=== PATIENT | male | born 1940 | race Caucasian/White ===

== ENCOUNTER 2023-01-16 09:53 | Outpatient (CLI) | payer MEDICARE, OTHER | END 2023-01-16 23:59 | disposition critical access hospital (66) | LOC: EMS 09:53 | DX: I46.9 Cardiac arrest, cause unspecified (principal) | CPT/HCPCS: A0425; A0427 ==

== ENCOUNTER 2023-01-16 10:15 | Inpatient (IN) | payer MEDICARE, OTHER ==
[2023-01-16] MEDS: NOREPINEPHRINE/D5W 8 MG/250 ML BAG IV SCH ×2 (10:24→19:02)
[2023-01-16] MEDS ORDERED: NOREPINEPHRINE/D5W 8 MG/250 ML BAG IV ONE (10:28)
[2023-01-16 10:37] LABS: ABG BASE EXCESS -20.2 mmol/L (-2.0-3.0); ABG HCO3 13.8 mmol/L (22.0-26.0); ABG PO2 65 mmHg (80-100); ALLEN TEST POSITIVE
[2023-01-16 10:38] LABS: ABG MODE OF VENTILATION SIMV; ABG RESPIRATORY RATE 20 b/min
[2023-01-16 10:45] LABS: ABG OXYGEN SATURATION 76 % (94-98); ABG PCO2 73 mmHg (34-45); ABG PH 6.89 (7.35-7.45)
[2023-01-16 10:49] LABS: BASOPHILS % (AUTO) 0.4 %; EOSINOPHILS % (AUTO) 1.3 %; HCT - HEMATOCRIT 48.3 % (42.0-52.0); HGB - HEMOGLOBIN 14.9 g/dL (14.0-18.0); LYMPHOCYTES % (AUTO) 31.5 %; MEAN CORPUSCULAR HEMOGLOBIN 30.7 pg (27.0-31.0); MEAN CORPUSCULAR HGB CONC 30.8 g/dL (32.0-36.0); MEAN CORPUSCULAR VOLUME 99.4 fL (80.0-94.0); MEAN PLATELET VOLUME 12.5 fL (7.4-11.4); MONOCYTES % (AUTO) 5.1 %; PLT - PLATELET COUNT 138 10^3/uL (130-450); RED BLOOD COUNT 4.86 10^6/uL (4.70-6.10); RED CELL DISTRIBUTION WIDTH 12.3 % (12.0-15.0); WHITE BLOOD COUNT 14.2 x10^3/uL (4.8-10.8)
[2023-01-16 10:55] LABS: ALBUMIN 3.5 g/dL (3.2-5.5); ALBUMIN/GLOBULIN RATIO 1.5 (1.0-2.2); BILIRUBIN,TOTAL 0.6 mg/dL (0.2-1.0); CREATININE 1.6 mg/dL (0.6-1.3); INR 1.3 (0.8-1.2); MAGNESIUM 2.2 mg/dL (1.7-2.3); PHOSPHORUS 8.6 mg/dL (3.7-7.2); TOTAL PROTEIN 5.9 g/dL (6.4-8.9)
[2023-01-16 10:56] LABS: ABNORMAL LYMPHS % (MANUAL) 0 %
[2023-01-16] MEDS ORDERED: iohexoL-300 100 ML VIAL ONE (10:56)
[2023-01-16] MEDS ORDERED: PROPOFOL 1000 MG/100 ML 1,000 MG/100 ML BOTTLE IV ONE (10:57)
--- NOTE | 2023-01-16 10:59 | XRAY Report ---
PROCEDURE: Chest 1 View X-Ray INDICATIONS: POST ARREST TECHNIQUE: One view of the chest was acquired. COMPARISON: None. FINDINGS: Surgical changes and devices: Endotracheal tube is present approximately 1 cm. To the tito. [place] stric tube is present distal tip projecting below the hemidiaphragms. Lungs and pleura: Bilateral patchy opacities are present. Mediastinum: Mediastinal contours appear normal. Heart size is normal. Bones and chest wall: No suspicious bony lesions. Overlying soft tissues appear unremarkable. IMPRESSION: Support lines as above. Bilateral pulmonary opacities which may represent pneumonia and/or edema. Reviewed by: Maame Betancourt MD on 01/16/2023 10:58 AM PDT Approved by: Maame Betancourt MD on 01/16/2023 10:58 AM PDT Station ID: [id number]
[2023-01-16 11:25] LABS: BAND NEUTROPHILS % (MANUAL) 18 %; EOSINOPHILS # (MANUAL) 0.3 10^3/uL (0-0.7); LYMPHOCYTES # (MANUAL) 6.4 10^3/uL (1.5-3.5); LYMPHOCYTES % (MANUAL) 14 %; METAMYELOCYTES % (MANUAL) 1 %; MONOCYTES # (MANUAL) 0.9 10^3/uL (0.0-1.0); MYELOCYTES % (MANUAL) 1 %; NEUTROPHILS # (MANUAL) 6.4 10^3/uL (1.5-6.6); REACTIVE LYMPHS % (MANUAL) 31 %
[2023-01-16 11:26] LABS: DIFFERENTIAL COMMENT MANUAL DIFFERENTIAL
--- NOTE | 2023-01-16 11:35 | ED Physician Documentation ---
PD HPI CPR - Stated complaint Stated Complaint: ROSC - Chief complaint Chief Complaint: Critical Care - History obtained from History obtained from: EMS - Additional information Additional information: 82-year-old male with unknown past medical history presents by EMS from home for cardiac arrest. Patient arrives intubated with CPR in progress. EMS states that patient had just finished eating breakfast and had gone to the restroom. Family told EMS that he didn't come back when exected and went to look for him. They found him on the ground and called 911. Family did CPR while waiting for EMS. Patient's presenting rhythm asystole. EMS briefly got ROSC however patient then lost pulses. Review of Systems Unable to obtain: Unresponsive, Intubated PD PAST MEDICAL HISTORY - Past Medical History Past Medical History: Yes - Allergies Allergies/Adverse Reactions: Allergies Allergy/AdvReac Type Severity Reaction Status Date / Time No Known Drug Allergies Allergy Verified 01/16/23 10:40 PD ED PE NORMAL - Vitals Vital signs reviewed: Yes - General General: Other (intubated, CPR in progress) - HEENT HEENT: Other (ETT in place) - Neck Neck: Other (In C-collar) - Cardiac Cardiac: Other (CPR in progress) - Abdomen Abdomen: Soft, Non distended - Derm Derm: Normal color, Warm and dry, No rash - Extremities Extremities: No deformity, No edema - Neuro Neuro: Other (GCS 3) Results - Vitals Vitals: Vital Signs - 24 hr 01/16/23 01/16/23 01/16/23 10:14 10:25 10:38 Temperature 34.5 C L Heart Rate 95 107 H 107 H Respiratory 20 22 Rate Blood Pressure 109/71 140/89 H O2 Saturation 100 86 L 01/16/23 01/16/23 01/16/23 10:54 11:08 11:15 Temperature 34.2 C L 34.5 C L 34.6 C L Heart Rate 108 H 110 H 112 H Respiratory 24 14 22 Rate Blood Pressure 121/91 H 136/119 H 136/97 H O2 Saturation 93 97 98 01/16/23 01/16/23 01/16/23 11:30 11:45 12:00 Temperature Heart Rate 113 H 113 H 111 H Respiratory 22 22 22 Rate Blood Pressure 175/152 H 156/108 H 96/63 O2 Saturation 98 96 94 01/16/23 01/16/23 01/16/23 12:15 12:30 12:45 Temperature Heart Rate 108 H 107 H 107 H Respiratory 22 20 20 Rate Blood Pressure 94/63 98/63 86/61 L O2 Saturation 95 94 94 01/16/23 01/16/23 01/16/23 13:00 13:15 13:30 Temperature 34.5 C L 34.5 C L 34.5 C L Heart Rate 107 H 107 H 107 H Respiratory 20 20 20 Rate Blood Pressure 101/77 95/67 91/68 O2 Saturation 94 94 93 01/16/23 01/16/23 01/16/23 13:45 14:00 14:15 Temperature 34.5 C L 34.5 C L 34.5 C L Heart Rate 107 H 105 H 107 H Respiratory 20 20 20 Rate Blood Pressure 98/68 78/58 L 84/72 L O2 Saturation 94 86 L 87 L 01/16/23 01/16/23 01/16/23 14:30 14:45 15:00 Temperature 34.5 C L 34.5 C L 34.5 C L Heart Rate 104 H 102 H 102 H Respiratory 20 20 20 Rate Blood Pressure 89/70 L 93/66 96/68 O2 Saturation 91 L 90 L 90 L 01/16/23 01/16/23 15:15 15:33 Temperature 34.5 C L Heart Rate 104 H 105 H Respiratory 20 18 Rate Blood Pressure 92/77 90/70 O2 Saturation 92 96 Oxygen O2 Source Mechanical ventilator - Labs Labs: Laboratory Tests 01/16/23 01/16/23 01/16/23 10:18 10:20 10:20 WBC 14.2 H RBC 4.86 Hgb 14.9 Hct 48.3 MCV 99.4 H MCH 30.7 MCHC 30.8 L RDW 12.3 Plt Count 138 MPV 12.5 H Neut # (Auto) Not Reportable Lymph # (Auto) Not Reportable Archuleta # (Auto) Not Reportable Eos # (Auto) Not Reportable Baso # (Auto) Not Reportable Absolute Nucleated RBC Not Reportable Total Counted 100 Band Neuts % (Manual) 18 H Reactive Lymphs % (Man) 31 Abnorm Lymph % (Manual) 0 Metamyelocytes % 1 H Myelocytes % 1 H Nucleated RBC % Not Reportable Neutrophils # (Manual) 6.4 Lymphocytes # (Manual) 6.4 H Monocytes # (Manual) 0.9 Eosinophils # (Manual) 0.3 Basophils # (Manual) 0.0 Differential Comment MANUAL DIFFERENTIAL PT 14.0 H INR 1.3 H Bld Gas Analysis Time Sample Site ABG pH ABG pCO2 ABG pO2 ABG HCO3 ABG Total CO2 ABG O2 Saturation ABG Base Excess Floyd Test Respiration Rate O2 Delivery Device Vent Mode FiO2 Tidal Volume PEEP Pressure Support Vent Sodium Potassium Chloride Carbon Dioxide Anion Gap BUN Creatinine Estimated GFR (MDRD) Glucose POC Whole Bld Glucose 115 H Lactic Acid Calcium Phosphorus Magnesium Total Bilirubin AST ALT Alkaline Phosphatase Troponin I High Sens Total Protein Albumin Globulin Albumin/Globulin Ratio Lipase 01/16/23 01/16/23 01/16/23 10:20 10:20 10:20 WBC RBC Hgb Hct MCV MCH MCHC RDW Plt Count MPV Neut # (Auto) Lymph # (Auto) Archuleta # (Auto) Eos # (Auto) Baso # (Auto) Absolute Nucleated RBC Total Counted Band Neuts % (Manual) Reactive Lymphs % (Man) Abnorm Lymph % (Manual) Metamyelocytes % Myelocytes % Nucleated RBC % Neutrophils # (Manual) Lymphocytes # (Manual) Monocytes # (Manual) Eosinophils # (Manual) Basophils # (Manual) Differential Comment PT INR Bld Gas Analysis Time Sample Site ABG pH ABG pCO2 ABG pO2 ABG HCO3 ABG Total CO2 ABG O2 Saturation ABG Base Excess Floyd Test Respiration Rate O2 Delivery Device Vent Mode FiO2 Tidal Volume PEEP Pressure Support Vent Sodium 140 Potassium 3.0 L Chloride 105 Carbon Dioxide 23 Anion Gap 12.0 BUN 21 H Creatinine 1.6 H Estimated GFR (MDRD) 42 L Glucose 290 H POC Whole Bld Glucose Lactic Acid 9.0 H* Calcium 9.0 Phosphorus 8.6 H Magnesium 2.2 Total Bilirubin 0.6 AST 126 H ALT 157 H Alkaline Phosphatase 105 Troponin I High Sens 53.3 H* Total Protein 5.9 L Albumin 3.5 Globulin 2.4 Albumin/Globulin Ratio 1.5 Lipase 41 01/16/23 01/16/23 10:27 12:06 WBC RBC Hgb Hct MCV MCH MCHC RDW Plt Count MPV Neut # (Auto) Lymph # (Auto) Archuleta # (Auto) Eos # (Auto) Baso # (Auto) Absolute Nucleated RBC Total Counted Band Neuts % (Manual) Reactive Lymphs % (Man) Abnorm Lymph % (Manual) Metamyelocytes % Myelocytes % Nucleated RBC % Neutrophils # (Manual) Lymphocytes # (Manual) Monocytes # (Manual) Eosinophils # (Manual) Basophils # (Manual) Differential Comment PT INR Bld Gas Analysis Time 1036 1213 Sample Site RIGHT RADIAL LEFT RADIAL ABG pH 6.89 L* 7.21 L ABG pCO2 73 H* 33 L ABG pO2 65 L 77 L ABG HCO3 13.8 L 13.1 L ABG Total CO2 16.0 L 14.2 L ABG O2 Saturation 76 L* 93 L ABG Base Excess -20.2 L -13.5 L Floyd Test POSITIVE POSITIVE Respiration Rate 20 24 O2 Delivery Device VENTILATOR VENTILATOR Vent Mode SIMV SIMV FiO2 100.00 100.00 Tidal Volume 400 400 PEEP 5 5 Pressure Support Vent 12 12 Sodium Potassium Chloride Carbon Dioxide Anion Gap BUN Creatinine Estimated GFR (MDRD) Glucose POC Whole Bld Glucose Lactic Acid Calcium Phosphorus Magnesium Total Bilirubin AST ALT Alkaline Phosphatase Troponin I High Sens Total Protein Albumin Globulin Albumin/Globulin Ratio Lipase Procedures - Central Line - Major Central Line Preparation: Unable to obtain consent, Time out completed, Sterile prep and drape Central line location: Right Femoral Central line type: Triple lumen Central line aftercare: Chlorhexidine disc placed, Secured, Placement confirmed, No complications, Pt tolerated well PD Medical Decision Making - ED course Complexity details: reviewed results, re-evaluated patient, considered differential, d/w family ED course: Patient arrived in active cardiac arrest with manual compressions ongoing. He was transition to ED bed where he was placed on monitoring and evaluation advisor, bilateral large-bore IVs placed, and ACLS continued. Initial pulse check on arrival confirmed ROSC, found to be sinus rhythm at a rate of approximately 90 bpm, EKG shows no ST segment elevation. Accu-Chek 115 taken on arrival. Levophed initiated via central line for BP support. IV fluids running. Patient's arrived shortly after presentation to emergency department. She states that patient was in his usual state of health when he ate breakfast, she stated that he told her he was going to use the restroom, and when he did not return as expected she went to look for him and found him sprawled on the floor. She initiated CPR. 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 She states that since the patient has already been resuscitated she would like to continue patient's work-up, however if he loses pulses again she requested that we do not do any CPR. Nursing staff advised of patient's wishes. Laboratory work reviewed, patient does appear to have some liver enzyme elevation as well as elevated creatinine, suspect this is from hypoperfusion following cardiac arrest. Troponin mildly elevated at 53. EKG is sinus rhythm without obvious ischemia. CT of the brain is concerning for possible evolving anoxic brain injury. CT of the chest shows bilateral infiltrates, concern for aspiration, anterolateral rib fractures consistent with chest compressions. Patient remains on Levophed for blood pressure support, propofol running for sedation. I discussed at length the results of all labs and imaging with patient's and daughter who are at bedside. They state that they have discussed the patient's status with other family members and they have agreed that the patient would not want any additional aggressive measures taken. They requested the patient remain on life support until the other daughter can fly in from [place], then they stated that they would want to compassionately extubate the patient and withdraw support. Patient to be admitted to ICU for additional monitoring and treatment until time comes to withdrawal care. Departure - Departure Disposition: 66 [facility] DC/Xfer Clinical Impression: Cardiac arrest, Aspiration into airway Condition: Critical Forms: PCP List
[2023-01-16] MEDS ORDERED: cefTRIAXone 1 GM in SODIUM CHLORIDE 0.9% MINIBAG 100 ML IV STA (11:51)
[2023-01-16] MEDS ORDERED: metroNIDAZOLE 500 MG/100 ML 500 MG/100 ML BAG IV ONE (11:52)
--- NOTE | 2023-01-16 12:12 | CT Report ---
PROCEDURE: HEAD WO INDICATIONS: post arrest TECHNIQUE: Noncontrast 4.5 mm thick angled axial sections acquired from the foramen magnum to the vertex. For r adiation dose reduction, the following was used: automated exposure control, adjustment of mA and/or kV according to patient size. COMPARISON: None. FINDINGS: Image quality: Good CSF spaces: Questionable sulcal asymmetry, less apparent in the left parietal lobe in particular. No evidence of herniation. The basal cisterns are patent. Volume: Vascular calcifications. Periventricular white matter disease is commonly seen with chronic m icroangiopathy. Volume loss is present. These findings are mild to moderate. Brain: No acute hemorrhage. No gross loss of rodriguez-white differentiation. Craniofacial structures: Partially seen pharyngeal and mild sinus fluid. Partially seen enteric tube. IMPRESSION: There is questionable sulcal asymmetry, most noticeable in the left parietal lobe. This could represe nt cytotoxic injury, for example from ischemia or cardiac arrest. Consider MRI versus CTA depending o n clinical context. Reviewed by: Mando Stark MD on 01/16/2023 12:11 PM PDT Approved by: Mando Stark MD on 01/16/2023 12:11 PM PDT Station ID: [id number]
[2023-01-16 12:15] LABS: ABG PH 7.21 (7.35-7.45)
[2023-01-16 12:16] LABS: ABG BASE EXCESS -13.5 mmol/L (-2.0-3.0); ABG HCO3 13.1 mmol/L (22.0-26.0); ABG OXYGEN SATURATION 93 % (94-98); ABG PCO2 33 mmHg (34-45); ABG PO2 77 mmHg (80-100); ABG TCO2 14.2 MMOL/L (21.0-29.0)
--- NOTE | 2023-01-16 12:16 | CT Report ---
PROCEDURE: CERVICAL SPINE WO INDICATIONS: GLF/POST ARREST TECHNIQUE: Noncontrast 3 mm thick sections acquired from the skull base to the T4 level. Sagittal and coronal r eformats were then constructed. For radiation dose reduction, the following was used: automated exp osure control, adjustment of mA and/or kV according to patient size. COMPARISON: None. FINDINGS: Image quality: Good Bones: Straightening of normal cervical lordosis. Trace retrolisthesis of C4 on C5. Trace anterolisth esis of C7 on T1. Vertebral body heights are well-maintained. No traumatic subluxation. Moderate degenerative changes. Soft tissues: Partially seen ET tube and enteric tube. There is nonspecific prevertebral edema. Parti ally seen lung disease and pleural effusions. IMPRESSION: Moderate degenerative changes. No acute fracture or traumatic subluxation. If there is high concern f or further derangement, consider MRI evaluation. Partially seen lung disease and pleural effusions. Reviewed by: Mando Stark MD on 01/16/2023 12:14 PM PDT Approved by: Mando Stark MD on 01/16/2023 12:14 PM PDT Station ID: [id number]
[2023-01-16 12:17] LABS: ABG MODE OF VENTILATION SIMV; ABG RESPIRATORY RATE 24 b/min; ALLEN TEST POSITIVE
--- NOTE | 2023-01-16 12:20 | CT Report ---
PROCEDURE: ANGIO CHEST W/WO INDICATIONS: S/P CARDIAC ARREST CONTRAST: 80ml Omni 300 TECHNIQUE: After the administration of intravenous contrast, 2 mm axial images were acquired from the pulmonary apices to the posterior costophrenic angles during the arterial phase. In addition, 1 mm lung kernel and 5 mm soft tissue kernel reconstructions were performed. 3-dimensional coronal oblique maximum int ensity projection (MIP) reformats, 8 mm axial MIP, and 5 mm coronal and sagittal MPR reformats were t hen performed through the thorax. For radiation dose reduction, the following was used: automated exp osure control, adjustment of mA and/or kV according to patient size. COMPARISON: None FINDINGS: Image quality: Motion artifact is present. Lungs and pleura:Moderate diffuse lung disease, mild to moderate pleural effusions, and subjacent ate lectasis. ET tube terminates in the lower trachea. Mediastinum, heart, and esophagus: The enteric tube terminates in the stomach. No central pulmonary e mbolus and. The distal arteries are not well seen. Small pleural effusions.. Nonspecific prominent ly mph nodes, possibly reactive in this setting. Coronary calcifications are present. Chest wall and thyroid: Thyroid is not well seen. Chest wall is unremarkable. Upper abdomen: No gross abnormality on these arterial phase images. Bones: Degenerative changes. There are displaced anterolateral rib fractures bilaterally IMPRESSION: Moderate diffuse lung disease, possibly edema or infection. Small pleural effusions and subjacent ate lectasis. Consider future imaging surveillance to assess for resolution. Anterolateral bilateral rib fractures compatible with chest compressions. Motion degraded CT. Reviewed by: Mando Stark MD on 01/16/2023 12:18 PM PDT Approved by: Mando Stark MD on 01/16/2023 12:18 PM PDT Station ID: [id number]
[2023-01-16] MEDS ORDERED: PROPOFOL 1000 MG/100 ML 1,000 MG/100 ML BOTTLE IV STA (12:37)
[2023-01-16] MEDS ORDERED: SODIUM CHLORIDE 0.9% 1,000 ML IV STA ×2 (13:32)
[2023-01-16] MEDS ORDERED: MIDAZOLAM DRIP 50 MG/50 ML 50 MG/50 ML BAG IV SCH ×2 (15:00→18:00)
[2023-01-16] MEDS ORDERED: iohexoL-300 100 ML VIAL IVP ONE (15:17)
[2023-01-16] MEDS ORDERED: SODIUM CHLORIDE FLUSH 0.9% 10 ML SYRINGE IVP PRN (15:30)
[2023-01-16] MEDS ORDERED: ACETAMINOPHEN 325 MG TABLET PO PRN (15:30)
[2023-01-16] MEDS ORDERED: ONDANSETRON 4 MG/2 ML VIAL IVP PRN (15:30)
--- NOTE | 2023-01-16 16:11 | HISTORY & PHYSICAL EXAMINATION ---
Chief Complaint - Chief Complaint Chief Complaint: Cardiac arrest at home History of Present Illness - Admitted From Admitted From:: ED - History Obtained From History obtained from: ED provider - History of Present Illness HPI Comment/Other: As per ER provider: Patient's arrived shortly after presentation to emergency department. She states that patient was in his usual state of health when he ate breakfast, she stated that he told her he was going to use the restroom, and when he did not return as expected she went to look for him and found him sprawled on the floor. She initiated CPR. 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 She states that since the patient has already been resuscitated she would like to continue patient's work-up, however if he loses pulses again she requested that we do not do any CPR. Nursing staff advised of patient's wishes. Laboratory work reviewed, patient does appear to have some liver enzyme elevation as well as elevated creatinine, suspect this is from hypoperfusion following cardiac arrest. Troponin mildly elevated at 53. EKG is sinus rhythm without obvious ischemia. CT of the brain is concerning for possible evolving anoxic brain injury. CT of the chest shows bilateral infiltrates, concern for aspiration, anterolateral rib fractures consistent with chest compressions. Patient remains on Levophed for blood pressure support, propofol running for sedation. I discussed at length the results of all labs and imaging with patient's and daughter who are at bedside. They state that they have discussed the patient's status with other family members and they have agreed that the patient would not want any additional aggressive measures taken. They requested the patient remain on life support until the other daughter can fly in from [place], then they stated that they would want to compassionately extubate the patient and withdraw support. Patient to be admitted to ICU for additional monitoring and treatment until time comes to withdrawal care. I met with the , daughter and son-in-law outside the room. They report ported all the above. Concerned that he is now a DNR. They confirmed that we are caring for him on the vent and to maintain blood pressure. THeir hope is that after the other daughter arrives from [place] sometime tonight, then sometime tomorrow morning, he will be started on comfort measures and be electively extubated. History - Past Medical History Cardiovascular: reports: Hypertension Neuro: reports: Alzhiemer's, Dementia MRSA Hx?: No Meds/Allgy - Home Medications Home Medications: Ambulatory Orders Medication Instructions Recorded Confirmed Aspirin EC [Ecotrin] 1 tab PO DAILY 01/16/23 01/16/23 Cholecalciferol [Vitamin D3] 1 tab PO Q48H 01/16/23 01/16/23 Cyanocobalamin (Vitamin B-12) 1 tab PO DAILY 01/16/23 01/16/23 [Vitamin B-12] Memantine HCl [Namenda] 1 tab PO BID 01/16/23 01/16/23 Mirabegron [Myrbetriq] 1 tab PO HS 01/16/23 01/16/23 Multivitamin with Minerals 1 tab PO DAILY 01/16/23 01/16/23 [Multivitamins with Minerals] Rosuvastatin Calcium [Crestor] 1 tab PO HS 01/16/23 01/16/23 Telmisartan 1 tab PO DAILY 01/16/23 01/16/23 - Allergies Allergies/Adverse Reactions: Allergies Allergy/AdvReac Type Severity Reaction Status Date / Time No Known Drug Allergies Allergy Verified 01/16/23 10:40 Exam - Vital Signs Vital Signs: Vital Signs x48h Temp Pulse Resp BP Pulse Ox 01/16/23 15:52 105 H 18 82/60 L 95 01/16/23 15:33 105 H 18 90/70 96 01/16/23 15:15 34.5 C L 104 H 20 92/77 92 01/16/23 15:00 34.5 C L 102 H 20 96/68 90 L 01/16/23 14:45 34.5 C L 102 H 20 93/66 90 L 01/16/23 14:30 34.5 C L 104 H 20 89/70 L 91 L 01/16/23 14:15 34.5 C L 107 H 20 84/72 L 87 L 01/16/23 14:00 34.5 C L 105 H 20 78/58 L 86 L 01/16/23 13:45 34.5 C L 107 H 20 98/68 94 01/16/23 13:30 34.5 C L 107 H 20 91/68 93 01/16/23 13:15 34.5 C L 107 H 20 95/67 94 01/16/23 13:00 34.5 C L 107 H 20 101/77 94 01/16/23 12:45 107 H 20 86/61 L 94 01/16/23 12:30 107 H 20 98/63 94 01/16/23 12:15 108 H 22 94/63 95 01/16/23 12:00 111 H 22 96/63 94 01/16/23 11:45 113 H 22 156/108 H 96 01/16/23 11:30 113 H 22 175/152 H 98 01/16/23 11:15 34.6 C L 112 H 22 136/97 H 98 01/16/23 11:08 34.5 C L 110 H 14 136/119 H 97 01/16/23 10:54 34.2 C L 108 H 24 121/91 H 93 01/16/23 10:38 107 H 22 140/89 H 86 L 01/16/23 10:25 107 H 01/16/23 10:14 34.5 C L 95 20 109/71 100 - Physical Exam General Appearance: positive: Other (Comatose) Eyes Bilateral: positive: No lid inflammation ENT: positive: No signs of dehydration Neck: positive: Nml inspection Respiratory: positive: No respiratory distress (on vent) Cardiovascular: positive: Regular rate & rhythm Abdomen: positive: Other (Not distended) Skin: positive: Other (Cool, normal color) Extremities: positive: No pedal edema Neurologic/Psychiatric: positive: Other (Comatose, no response to pain) Conclusion/Plan - Problem List (1) Cardiac arrest Conclusion/Plan: The patient was found pulseless at home. The started CPR. EMS continued CPR. CPR was continued in the ER. He had return of spontaneous circulation and is in sinus rhythm. Plan: Because of anoxic brain changes seen on CT, the family has elected to now assure that he is a DNR We are awaiting for family member to arrive to be next to him. He will then be put on comfort measures and extubated (2) Rib fractures Conclusion/Plan: As per CT report (3) Anoxic brain injury Conclusion/Plan: as per CT report - Lab Results Fish Bones: 01/16/23 10:20 01/16/23 10:20 - Other Other Results/Comments: Attestation: Patient is expected to be discharged or transferred to another facility or expected to in the next 96 hours: Yes
[2023-01-16] MEDS: SODIUM CHLORIDE FLUSH 0.9% 10 ML SYRINGE IVP SCH (17:05)
--- NOTE | 2023-01-16 17:22 | PHARMACY PROGRESS NOTE ---
- Best Possible Medication History Admit Date and Time: 01/16/23 1531 Processed by: Pharmacy Medication History completed: Yes Patient Interview: Completed Secondary Source(s): Spouse/Significant other, Pharmacy records As the person ultimately responsible for medication therapy, providers are able to order a medication from an existing home medication list in [facility] via the "Reconcile Routine" prior to Confirmation of that medication by applications support specialist. Such practice is discouraged except when the physician, in their clinical judgment, deems that a medical need exists for a medication without regard to previous use.
[2023-01-16] MEDS ORDERED: NOREPINEPHRINE/D5W 8 MG/250 ML BAG IV SCH ×2 (18:00)
[2023-01-16] MEDS: DOPamine 400 MG/250 ML 400 MG/250 ML BAG IV SCH (21:27)
[2023-01-17] MEDS: SODIUM CHLORIDE FLUSH 0.9% 10 ML SYRINGE IVP SCH ×2 (00:32→04:00)
[2023-01-17] MEDS: DOPamine 400 MG/250 ML 400 MG/250 ML BAG IV SCH (04:00)
[2023-01-17] MEDS: NOREPINEPHRINE/D5W 8 MG/250 ML BAG IV SCH (06:18)
[2023-01-17 08:26] VITALS: BP 63/46
[2023-01-17] MEDS ORDERED: MORPHINE 10 MG/ML VIAL IVP ONE (08:29)
[2023-01-17] MEDS ORDERED: MORPHINE 2 MG/ML CARPUJECT ONE (08:31)
--- NOTE | 2023-01-17 18:51 | PROVIDER PROGRESS NOTE ---
Progress Note NOTE This patient was an 82-year-old male admitted after cardiac arrest with ROSC in the field on 01/16/2023. He the following morning. Please see the history and physical for full details of the hospital admission, in brief Patient was in his usual state of health. He told the family he had to go to the bathroom. When he did not return for an extended period his went to check on him and found him slouched on the ground unconscious. She performed CPR. Paramedics arrived and they were able to achieve ROSC and he arrived intubated. He was evaluated comprehensively in the emergency department and he did have a lactic acidosis but he did not have elevated cardiac enzymes. CT scan showed evidence of probable anoxic brain injury of the parietal lobe. CT angiogram of the chest did not show evidence of PE, Though there did appear to be pleural effusions and coronary calcification on CT scan. There is no definitive diagnostic data point pointing to an exact etiology of the patient's other than a cardiac arrest. He was intubated in the field and maintained on ventilator, and required Levophed for blood pressure support. Shortly after he was admitted, family had communicated their wishes to withdrawal care as the patient was previously a DO NOT RESUSCITATE who had been having worsening dementia in the last 18 months. 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 His only attempted CPR due to the acute unexpected nature of the event. He was kept on life support for such time that family could arrive to be at his bedside. And shortly after change of shift in the morning, after family members voiced their acceptance and wishing to move forward with withdrawal of care, he was subsequently extubated and shortly after at 8:25 AM.
== END 2023-01-17 08:37 | disposition expired | DRG 297 ==
LOC: ED 10:15 → ICU 15:31
PROVIDERS: ADMIT Internal Medicine; ATTEND Family Medicine Sports Medicine
DX: I46.9 Cardiac arrest, cause unspecified (principal); T17.818A Gastric contents in other parts of respiratory tract causing other injury, initial encounter; R91.8 Other nonspecific abnormal finding of lung field; R40.4 Transient alteration of awareness; E87.20 Acidosis, unspecified; G93.1 Anoxic brain damage, not elsewhere classified; J90 Pleural effusion, not elsewhere classified; M96.A3 Multiple fractures of ribs associated with chest compression and cardiopulmonary resuscitation; J98.11 Atelectasis; Z66 Do not resuscitate; G30.9 Alzheimer's disease, unspecified; F02.80 Dementia in other diseases classified elsewhere, unspecified severity, without behavioral disturbance, psychotic disturbance, mood disturbance, and anxiety; I10 Essential (primary) hypertension; I25.10 Atherosclerotic heart disease of native coronary artery without angina pectoris
CPT/HCPCS: 36415; 36556; 36600; 70450; 71045; 71275; 72125; 80053; 82803; 83605; 83690; 83735; 84100; 84484; 85025; 85610; 87150; 94002; 94003; 96365; 96368; 99285; Q9967; 82310; 82330; 84132; 94770